=== PATIENT | female | born 1945 | race Caucasian/White ===

== ENCOUNTER 2021-01-14 12:55 | Emergency (ER) | payer MEDICARE, OTHER ==
[2021-01-14 18:44] LABS: BASOPHIL 0.4 % (0-2); EOSINOPHIL 0.1 % (0-7); HCT 42.1 % (37.0-47.0); HGB 14.3 g/dl (12.5-16.0); LYMPHOCYTE 8.2 % (15-48); MCH 31.6 pg (25.0-31.0); MCV 93.1 fL (78.0-100.0); MONOCYTE 4.9 % (0-12); MPV 8.9 fL (6.0-9.5); NEUTROPHIL 86.1 % (41-80); NRBC 0; PLT 141 K/uL (150-400); RBC 4.52 M/uL (4.20-5.40); WBC 10.9 K/uL (4.0-10.5)
[2021-01-14 18:54] LABS: ALBUMIN 3.7 g/dL (3.4-5.0); BILIRUBIN - TOTAL 0.5 mg/dL (0.2-1.0); BUN/CREAT RATIO (CALC) 19.4 RATIO; CREATININE 0.72 mg/dL (0.51-0.95); GLOBULIN (CALCULATION) 4.3 g/dL; POTASSIUM 3.4 mmol/L (3.5-5.1)
[2021-01-14 19:49] LABS: BILIRUBIN NEGATIVE (NEGATIVE); BLOOD NEGATIVE Ery/uL (NEGATIVE); CLARITY CLEAR (CLEAR); COLOR YELLOW (YELLOW); GLUCOSE (U) NORMAL (NORMAL); LEUKOCYTES 1+ Leu/uL (NEGATIVE); NITRITE NEGATIVE (NEGATIVE); PROTEIN NEGATIVE (NEGATIVE); SPECIFIC GRAVITY 1.025 (1.001-1.030); UROBILINOGEN 0.2 mg/dL (0.2-1.0); pH 5.5 (5.0-9.0)
[2021-01-14 19:55] LABS: AMORPHOUS URATES CRYSTALS TRACE; BACTERIA 2+
[2021-01-15] MEDS ORDERED: MACROBID100 MG PO (01:08)
== END 2021-01-15 01:35 | disposition home or self-care (01) ==
LOC: FER 12:55
PROVIDERS: Internal Medicine
DX: N39.0 Urinary tract infection, site not specified (principal); U07.1 COVID-19; R10.31 Right lower quadrant pain; I10 Essential (primary) hypertension
CPT/HCPCS: 36415; 80053; 81001; 82150; 83690; 85025; J0696; J7030; Q9967; U0002